=== PATIENT | female | born 1935 | race Caucasian/White ===

== ENCOUNTER 2018-10-27 09:12 | Emergency (ER) | payer MEDICARE, OTHER ==
[~2018-10-27] VITALS: Ht 160 cm; Wt 77.1 kg
[~2018-10-27 09:12] MED LIST: Amlodipine Besyl5 MG PO; CYCLOSPORINE BOTHEYES; Ferrous Sulfat325 M2 PO; Omeprazole20 M1 PO; PREG150 PO; Synthroid112 MCG PO; TRAM50 PO; Vitamin B-121000 MCG PO
== END 2018-10-27 10:40 | disposition home or self-care (01) ==
LOC: ER 09:12
DX: S01.81XA Laceration without foreign body of other part of head, initial encounter (principal); E11.9 Type 2 diabetes mellitus without complications; I10 Essential (primary) hypertension; I25.10 Atherosclerotic heart disease of native coronary artery without angina pectoris; I25.2 Old myocardial infarction; K21.9 Gastro-esophageal reflux disease without esophagitis; F32.9 Major depressive disorder, single episode, unspecified; E78.5 Hyperlipidemia, unspecified; Z79.899 Other long term (current) drug therapy; W18.30XA Fall on same level, unspecified, initial encounter
CPT/HCPCS: 12053; 70450; 99284-25

== ENCOUNTER → 2019-03-24 | Outpatient (CLI) | payer MEDICARE, OTHER ==
[2019-03-24 16:12] LABS: BASOPHILS ABSOLUTE AUTO 0.08 K/mm3 (0.00-0.23); BASOPHILS PERCENT AUTO 1 % (0-2); EOSINOPHILS ABSOLUTE AUTO 0.15 K/mm3 (0.00-0.68); EOSINOPHILS PERCENT AUTO 2 % (0-6); Hematocrit 37.9 % (33.0-51.0); Hemoglobin 11.9 g/dL (11.5-16.0); IMMATURE GRAN ABSOLUTE AUTO 0.01 K/mm3 (0.00-0.10); IMMATURE GRAN PERCENT AUTO 0 % (0-1); LYMPHOCYTES ABSOLUTE AUTO 0.91 K/mm3 (0.84-5.20); LYMPHOCYTES PERCENT AUTO 13 % (21-46); MONOCYTES ABSOLUTE AUTO 0.78 K/mm3 (0.16-1.47); MONOCYTES PERCENT AUTO 11 % (4-13); Mean Corpuscular HGB Conc 31.4 g/dL (31.5-36.5); Mean Corpuscular Volume 86 fL (80-100); Mean Platelet Volume 10.7 fL (9.1-12.4); NEUTROPHILS ABSOLUTE AUTO 5.29 K/mm3 (1.96-9.15); NEUTROPHILS PERCENT AUTO 73 % (41-73); Platelet Count 274 K/mm3 (150-400); RDW Coefficient Variation 14.3 % (11.7-14.2); RDW Standard Deviation 44.8 fL (35.1-46.3); Red Blood Cell Count 4.41 M/mm3 (3.80-5.20); White Blood Cell Count 7.22 K/mm3 (4.00-11.30)
[2019-03-24 16:14] LABS: Bilirubin, Urine Neg (Neg); Blood, Urine 1+ (Neg); Glucose Qualitative, Urine Neg (Neg); Ketones, Urine 1+ (Neg); Leukocyte Esterase, Urine 2+ (Neg); Nitrite, Urine Neg (Neg); Protein, Urine 1+ (Neg); Urobilinogen, Urine 1+ (Normal)
[2019-03-24 16:22] LABS: Appearance, Urine Clear (Clear); Color, Urine Yellow (P-Yellow)
[2019-03-24 16:23] LABS: Bacteria Few /hpf; Mucus Light (0-Heavy); Squamous Epithelial Cells Few /hpf (Few)
[2019-03-24 16:37] LABS: Alanine Aminotransfer (ALT/SGP 17 U/L (12-78); Albumin, Blood 3.7 g/dL (3.4-5.0); Albumin/Globulin Ratio 0.9 (0.8-1.8); Alk Phos 95 U/L (50-136); Anion Gap 5 mmol/L (6-16); Aspartate Aminotrans (AST/SGOT 13 U/L (12-37); Bilirubin, Total 0.6 mg/dL (0.1-1.0); Blood Urea Nitrogen 22 mg/dL (8-24); Bun/Creatinine Ratio 27.2 (12.0-20.0); CO2, Blood 27 mmol/L (21-32); Calcium, Blood 9.1 mg/dL (8.5-10.1); Chloride, Blood 105 mmol/L (98-108); Creatinine, Blood 0.81 mg/dL (0.40-1.00); Globulin, Blood 3.9 g/dL (2.2-4.0); Glomerular Filtration Rate >60 (60-); Glucose, Blood 90 mg/dL (70-99); Potassium, Blood 3.3 mmol/L (3.5-5.5); Sodium, Blood 137 mmol/L (136-145); Total Protein, Blood 7.6 g/dL (6.4-8.2)
== END ==
LOC: LAB SHORT 16:02 → LAB 16:02
PROVIDERS: Nurse Practitioner
DX: N39.0 Urinary tract infection, site not specified (principal); R53.83 Other fatigue
CPT/HCPCS: 80053; 81001; 84443; 85025; 87086

== ENCOUNTER 2020-06-15 12:58 | Inpatient (IN) | payer OTHER, MEDICARE ==
[~2020-06-15] VITALS: Ht 160 cm; Wt 76.3 kg
[~2020-06-15 12:58] MED LIST changes: +Amlodipine Bes2.5 MG PO; -Amlodipine Besyl5 MG PO; +EUTHYROX125 MCG PO; -Synthroid112 MCG PO
[2020-06-15 13:37] LABS: BASOPHILS ABSOLUTE AUTO 0.04 K/mm3 (0.00-0.23); BASOPHILS PERCENT AUTO 0 % (0-2); EOSINOPHILS ABSOLUTE AUTO 0.06 K/mm3 (0.00-0.68); EOSINOPHILS PERCENT AUTO 1 % (0-6); Hematocrit 38.4 % (33.0-51.0); IMMATURE GRAN ABSOLUTE AUTO 0.03 K/mm3 (0.00-0.10); IMMATURE GRAN PERCENT AUTO 0 % (0-1); LYMPHOCYTES ABSOLUTE AUTO 0.22 K/mm3 (0.84-5.20); LYMPHOCYTES PERCENT AUTO 2 % (21-46); MONOCYTES ABSOLUTE AUTO 0.52 K/mm3 (0.16-1.47); MONOCYTES PERCENT AUTO 4 % (4-13); Mean Corpuscular HGB 27.7 pg (26.0-34.0); Mean Corpuscular HGB Conc 33.9 g/dL (31.5-36.5); Mean Corpuscular Volume 82 fL (80-100); Mean Platelet Volume 11.2 fL (9.1-12.4); NEUTROPHILS PERCENT AUTO 93 % (41-73); Platelet Count 173 K/mm3 (150-400); RDW Standard Deviation 44.2 fL (35.1-46.3); Red Blood Cell Count 4.69 M/mm3 (3.80-5.20); White Blood Cell Count 11.77 K/mm3 (4.00-11.30)
[2020-06-15] MEDS ORDERED: PREG150 PO (13:44)
[2020-06-15 13:52] LABS: Troponin I 0.383 ng/mL (0.000-0.040)
[2020-06-15 13:53] LABS: Alanine Aminotransfer (ALT/SGP 20 U/L (12-78); Albumin, Blood 3.1 g/dL (3.4-5.0); Albumin/Globulin Ratio 0.8 (0.8-1.8); Alk Phos 108 U/L (50-136); Anion Gap 9 mmol/L (6-16); Aspartate Aminotrans (AST/SGOT 22 U/L (12-37); Bilirubin, Total 0.8 mg/dL (0.1-1.0); Blood Urea Nitrogen 14 mg/dL (8-24); Bun/Creatinine Ratio 22.3 (12.0-20.0); CO2, Blood 24 mmol/L (21-32); Calcium, Blood 8.6 mg/dL (8.5-10.1); Chloride, Blood 98 mmol/L (98-108); Creatinine, Blood 0.63 mg/dL (0.40-1.00); Globulin, Blood 3.7 g/dL (2.2-4.0); Glomerular Filtration Rate >60 (60-); Glucose, Blood 127 mg/dL (70-99); Potassium, Blood 3.6 mmol/L (3.5-5.5); Sodium, Blood 131 mmol/L (136-145); Total Protein, Blood 6.8 g/dL (6.4-8.2)
[2020-06-15 13:59] LABS: Source, Urine Catheter
[2020-06-15 14:08] LABS: Appearance, Urine Clear (Clear); Bilirubin, Urine Neg (Neg); Blood, Urine 1+ (Neg); Color, Urine Yellow (P-Yellow); Glucose Qualitative, Urine Neg (Neg); Ketones, Urine 3+ (Neg); Leukocyte Esterase, Urine 1+ (Neg); Nitrite, Urine Neg (Neg); Protein, Urine 2+ (Neg); Urobilinogen, Urine NORM (Normal)
[2020-06-15 14:36] LABS: Bacteria Few /hpf; Squamous Epithelial Cells Few /hpf (Few)
[2020-06-15] MEDS ORDERED: Vistaril25 MG PO (15:25)
--- NOTE | 2020-06-15 18:35 | NUR ---
Shift Summary Received report from [facility] ED-RN. Patient arrived via gurney without spouse. A/Ox3, pleasant and cooperative. Patient reports unable to stand/transfer. Denies any pain, nausea, vomiting, diarrhea. History is limited to what patient was able to remember. Tele: SR corbin PAC's. Settled to room, oriented to call light system, bed in lowest position. T.O. from Dr. Adan to change D5 1/2 NS KCl to D5NS and NPO except meds/sips of water. Orders have been updated. Patient states garbled speech is new. WCTM.
[2020-06-15 21:07] LABS: CHOL/HDL RATIO 2.7; Cholesterol 152 mg/dL (50-200); HDL Cholesterol 57 mg/dL (>39); LDL/HDL RATIO 1.4; Low Density Lipoprotein Chol 80 mg/dL (0-110); Triglycerides 73 mg/dL (30-160); Very Low Density Lipoprot Chol 14 mg/dL (6-32)
[2020-06-16 01:54] LABS: Anion Gap 5 mmol/L (6-16); Blood Urea Nitrogen 13 mg/dL (8-24); Bun/Creatinine Ratio 21.7 (12.0-20.0); CO2, Blood 29 mmol/L (21-32); Calcium, Blood 8.2 mg/dL (8.5-10.1); Chloride, Blood 99 mmol/L (98-108); Glomerular Filtration Rate >60 (60-); Glucose, Blood 134 mg/dL (70-99); Potassium, Blood 3.3 mmol/L (3.5-5.5); Sodium, Blood 133 mmol/L (136-145)
--- NOTE | 2020-06-16 06:45 | NUR ---
SHIFT SUMMARY PT A&O T/O SHIFT, CALM AND COOPERATIVE WITH CARE. AT THE BEGINNING OF THE SHIFT IT WAS NOTED THAT THE PT HAD A SLIGHT EXPIRATORY WHEEZE. THE NIGHT WENT ON THE WHEEZE WAS MORE AUDITORY AND LUNG SOUNDS WERE TIGHTER. O2 SATS REMAINED ABOVE 92%. PT STATED SHE HAS COPD AND WAS A FORMER SMOKER. BD PROTOCOL WAS ORDER AND PT RECIEVED A BREATHING TX THAT APPEARED TO HELP SLIGHTLY. PT STILL HAD AN AUDIBLE WHEEZE. BP WAS ALSO ELEVATED, 177/102, EARLY THIS AM, HR ALSO INCREASING IN THE 90-1TEENS. PROVIDER NOTIFIED AND PT WAS GIVEN HYDRALAZINE 10 MG IV PER HOSPITALIST ORDERS. BP BEGAN TO DROP SHORTLY AFTER, 155/91. RECIEVED CALL FROM MASTER CERTIFIED RV TECHNICIAN @ APPROX 0530 STATING THE PT CONVERTED INTO A FIB IN THE 130'S. ENROBING MACHINE OPERATOR HOSPITALIST WAS NOTIFIED AND ORDERED 5 MG IV LOPRESSOR NOW. PT WAS GIVEN THE LOPRESSOR. CALLED MASTER CERTIFIED RV TECHNICIAN @ 0645 AND PT WAS STILL IN AFIB IN THE 90'S. PT APPEARS TO BE IN NO DISTRESS AT THIS TIME AND IS LYING IN BED SLEEPING. CALL LIGHT IS WITHIN REACH. WILL REPORT TO UNCOMING RN PT CHANGES AND STAUS.
--- NOTE | 2020-06-16 14:26 | NUR ---
V.O. RE IVF RATE CHANGE RECEIVED V.O. FROM DR. LOPEZ TO REDUCE D5NS FROM 100 MLS/HR TO 75 MLS/HR. ORDER UPDATED
--- NOTE | 2020-06-16 16:02 | NUR ---
BLADDER SCAN/STRAIGHT CATH ORDER PATIENT HAS 2 MINIMAL VOIDS THIS SHIFT. BLADDER SCAN DONE AND SHOWED 739 CC. RECEIVED ONE TIME T.O. TO STRAIGHT CATH FROM DR. LOPEZ. STRAIGHT CATH COMPLETED AND 500 CC OUT.
--- NOTE | 2020-06-16 16:06 | NUR ---
PUREE DIET/HONEY THICK RECEIVED T.O. FROM DR. LOPEZ TO START PUREE DIET D/T ASPIRATION RISK WITH THIN LIQUIDS. ORDER UPDATED.
--- NOTE | 2020-06-16 18:35 | NUR ---
Shift Summary A/Ox3, pleasant and cooperative with care. PT eval done. Tele: ST 106 c PAC's in AM. Continuous biox on. Diet changed to puree and honey thick d/t wet cough after drinking thin liquids, patient tolerated this well. Updated and d/c IVF order because patient is no longer NPO. Received T.O. from Dr. Carpio to d/c CBG's. Received V.O. from Dr. Clifton to insert madera if patient continues to retain, but received parameters from Dr. Carpio (PVD > 500cc). Patient still having global weakness, follows commands well. HR tachy and patient having low-grade temp, all other vitals have been stable. visited briefly. Denies pain, nausea, vomiting, diarrhea, shortness of breath. On RA, WCTM.
--- NOTE | 2020-06-16 19:40 | NUR ---
[employer] REPORTED HEART RATE IN THE 130'S. UPON ARRIVAL TO ROOM, PT STATED SHE HAD HAD A "COUGHING SPELL", AND FELT SOB. NOTE CONT O2 SHOWS 90'S SATS. CALL PLACED TO RT FOR ASSESSMENT AND TREATMENT. RT WAS IN THE ROOM AND TREATMENT GIVEN. WILL CONTINUE TO MONITOR. HR DOWN TO 112, OR SO. CALL LIGHT IN REACH
--- NOTE | 2020-06-16 22:34 | NUR ---
HS MEDS TOLERATED WELL WITH APPLESAUCE AND ASPIRATION PRECAUTIONS MAINTAINED. HONEY THICK LIQUIDS IN ROOM. CALL LIGHT IN REACH. HEART MONITOR/O2 SATS IN USE.
--- NOTE | 2020-06-17 04:31 | NUR ---
BP AND HR ELEVATED, (SEE DOCUMENTATION) HR WAS REPORTED UP TO 140'S AND 150'S. CALL PLACED TO MD SURVEY PARTY CHIEF, METAPROLOL IV ORDERED - SEE MAR. MED GIVEN, NOW HR 93, RESTING QUIETLY. WILL MONITOR. CALL LIGHT IN REACH
--- NOTE | 2020-06-17 05:42 | NUR ---
SHIFT SUMMARY HAS BEEN RESTING WITH FEW INTERRUPTIONS, BUT HEART RATE AND BP ELEVATED - SEE DOCUMENTATION SHEET. MD RN PERITONEAL DIALYSIS WAS NOTIFIED AND ORDERS FOR METAPROLOL OBTAINED AND GIVEN. HR DECREASED TO 80'S AND 90'S. DENIED CHEST PAIN, CINGESTED COUGH AT TIMES, RECEIVEING RESP TREATMENTS. CALL LIGHT IN REACH
[2020-06-17 11:37] LABS: Influenza A, PCR NEGATIVE (NEGATIVE); Influenza B, PCR NEGATIVE (NEGATIVE); Resp Syncytial Virus, PCR NEGATIVE (NEGATIVE)
[2020-06-17 11:41] LABS: SARS-Cov-2 (COVID-19) PCR, MMC POSITIVE (NEGATIVE)
--- NOTE | 2020-06-17 12:25 | NUR ---
0845 SPOKE WITH HOSPITALIST REGARDING SWALLOWING CHANGES, DROOLING, LEFT MOUTH DROOP, DYSPNEA WITH O2 SATS WNL, AND GENERALIZED WEAKNESS. MD PLACING ORDERS. RT CALLED FOR BREATHING TX. 1020: TELE CONFIRMS AFIB HEART RATE 100-110. PO METOPROLOL STARTING TODAY 12.5 MG BID. 1230: COVID POSITIVE RESULT. HEAD CT AND MRI NEGATIVE FOR STROKE. MD STATES WILL CALL FAMILY. RESTING IN BED AT THIS TIME ON RA WITH CONTINUOUS SPO2 IN PLACE, SATS WITHIN NORMAL LIMITS. CXR AND ECHO TESTS PENDING.
[2020-06-17 12:36] LABS: Anion Gap 7 mmol/L (6-16); Blood Urea Nitrogen 20 mg/dL (8-24); Bun/Creatinine Ratio 33.3 (12.0-20.0); CO2, Blood 25 mmol/L (21-32); Calcium, Blood 8.7 mg/dL (8.5-10.1); Chloride, Blood 102 mmol/L (98-108); Glomerular Filtration Rate >60 (60-); Glucose, Blood 128 mg/dL (70-99); Magnesium, Blood 1.9 mg/dL (1.6-2.4); Phosphorus, Blood 2.2 mg/dL (2.5-4.9); Potassium, Blood 3.6 mmol/L (3.5-5.5); Sodium, Blood 134 mmol/L (136-145)
--- NOTE | 2020-06-17 23:04 | NUR ---
Isolation precautions maintained for Covid Dx. Assisted to bedside commode earlier with (2) person assist. Back in bed, later was incont of urine and changed. HOB elevated at >45 degrees for breathing comfort. Pulse in 90's. O2 saturation maintained. Call light in reach
--- NOTE | 2020-06-18 04:14 | NUR ---
SHIFT SUMMARY HAS BEEN AWAKE A FWE TIMES SINCE HS WITH REQUESTS FOR ASSIST TO BEDSIDE COMMODE AND WA INCONT OF URINE AND WAS CHANGED. CALL LIGHT IN REACH. HR IN THE 70'S - 90'S AND O2 SATS IN THE 90'S. HOB ELEVATED FOR COMFORT WITH BREATHING. CALL LIGHT IN REACH. DROPLET ISOLATION PRECAUTIONS MAINTAINED. RESTING QUIETLY AT THIS TIME.
[2020-06-18 05:02] LABS: BASOPHILS ABSOLUTE AUTO 0.01 K/mm3 (0.00-0.23); BASOPHILS PERCENT AUTO 0 % (0-2); EOSINOPHILS PERCENT AUTO 0 % (0-6); Hematocrit 34.7 % (33.0-51.0); Hemoglobin 11.5 g/dL (11.5-16.0); IMMATURE GRAN ABSOLUTE AUTO 0.02 K/mm3 (0.00-0.10); IMMATURE GRAN PERCENT AUTO 0 % (0-1); LYMPHOCYTES ABSOLUTE AUTO 0.44 K/mm3 (0.84-5.20); LYMPHOCYTES PERCENT AUTO 6 % (21-46); MONOCYTES ABSOLUTE AUTO 0.42 K/mm3 (0.16-1.47); MONOCYTES PERCENT AUTO 6 % (4-13); Mean Corpuscular HGB 27.3 pg (26.0-34.0); Mean Corpuscular HGB Conc 33.1 g/dL (31.5-36.5); Mean Corpuscular Volume 82 fL (80-100); Mean Platelet Volume 11.5 fL (9.1-12.4); NEUTROPHILS ABSOLUTE AUTO 6.78 K/mm3 (1.96-9.15); NEUTROPHILS PERCENT AUTO 88 % (41-73); Platelet Count 174 K/mm3 (150-400); RDW Coefficient Variation 14.9 % (11.7-14.2); RDW Standard Deviation 44.4 fL (35.1-46.3); Red Blood Cell Count 4.21 M/mm3 (3.80-5.20); White Blood Cell Count 7.67 K/mm3 (4.00-11.30)
[2020-06-18 05:20] LABS: Anion Gap 8 mmol/L (6-16); Blood Urea Nitrogen 26 mg/dL (8-24); Bun/Creatinine Ratio 41.9 (12.0-20.0); CO2, Blood 25 mmol/L (21-32); Calcium, Blood 8.6 mg/dL (8.5-10.1); Chloride, Blood 103 mmol/L (98-108); Creatinine, Blood 0.62 mg/dL (0.40-1.00); Glomerular Filtration Rate >60 (60-); Glucose, Blood 125 mg/dL (70-99); Magnesium, Blood 1.8 mg/dL (1.6-2.4); Phosphorus, Blood 3.3 mg/dL (2.5-4.9); Potassium, Blood 4.1 mmol/L (3.5-5.5); Sodium, Blood 136 mmol/L (136-145)
--- NOTE | 2020-06-18 05:36 | NUR ---
BATHROOM LIGHT SENSOR ON, UPON ARRIVAL IN ROOM, NOTE PT SITTING ON TOILET REQUESTING ASSISTANCE. PT HAD VOIDED, BUT SAID SHE FORGOT THAT SHE WAS IN THE HOSPITAL AND THOUGHT SHE WAS AT HOME, AND "GOT UP AND WENT TO THE TOILET". aSSISTED BACK TO BED. INSTRUCTED TO USE CALL LIGHT FOR ASSIST TO AND FROM BATHROM TO AVOID FALLING. BED ALARM ON. CALL LIGHT IN REACH. BP SLIGHTLY ELEVATED OTHERWISE VSS.
--- NOTE | 2020-06-18 13:19 | NUR ---
Patient is sitting on a chair and alert. Patient is very tearful. She talks about how scary the Covid diagnosis is and how much she misses her family. She states that she will try to talk with her daughter (who travelled from [place] to see her) on the phone while she stands outside patient's hospital window. Patient tells me her life story and weaves in her family and her spiritual journey into the storyline. I normalize patient's experience and provide therapeutic listening, anxiety containment, pastoral addictions counselor assistant and prayer. Patient responds well and shows signs of an elevated mood and reduced stress. I will continue to remain available to patient and family.
--- NOTE | 2020-06-18 22:31 | NUR ---
HELP DESK OPERATOR REPORTED PT C/O DIFFICULTY WITH BREATHING. REPOSITIONED IN BED WITH HOB ELEVATED TO >45 DEGREES. PT STATED HAVING SOME DIFFICULTY "COUGHING" UP PHLEGM. CALL PLACED TO RT FOR EVAL AND RESP TREATMENT. CALL LIGHT IN REACH. O2 SATS IN 90'S. CONT PULSE OX IN USE. WILL MONITOR
--- NOTE | 2020-06-18 22:53 | NUR ---
WAS ASSISTED TO AND FROM BATHROOM EARLIER WITH USE OF WALKER. AFFECT CHEERFUL. VOICED FELT BETTER, WAS INCLINED TO BE "SELF EFFICIENT". INSTRUCTED TO USE CALL LIGHT FOR ASSIST AT LEAST FOR SUPERVISION. VOICED AGREEMENT. RT RECENTLY IN TO SEE PT POST RESP C/O. RESTING QUIETLY AT THIS TIME. CALL LIGHT IN REACH
--- NOTE | 2020-06-19 00:54 | NUR ---
AWAKE, O2 SATS 90'S. HOB REMAINS ELEVATED >45 DEGREES. SMILING, NO NOTED ACUTE RESP DISTRESS. CALL LIGHT IN REACH
--- NOTE | 2020-06-19 04:07 | NUR ---
SHIFT SUMMARY AWAKE AT INTERVALS, UP TO THE BATHROOM A FEW TIMES WITH WALKER AND ASSISTANCE. USING CALL LIGHT APPROPRIATELY. COVID ISOLATION PRECAUTIONS MAINTAINED. CONT PULSE OX: SATS 90'S AND HR MAINLY LESS THAN 100. HAD ONE EPISODE OF SOB, AT WHICH TIME WAS REPOSITIONED IN BED AND ASSESSED BY RT. NO FURTHER EPISODES NOTED. RESTING QUIETLY AT THIS TIME. CALL LIGHT IN REACH.
[2020-06-19 05:21] LABS: Anion Gap 8 mmol/L (6-16); Blood Urea Nitrogen 31 mg/dL (8-24); Bun/Creatinine Ratio 42.8 (12.0-20.0); CO2, Blood 24 mmol/L (21-32); Chloride, Blood 101 mmol/L (98-108); Creatinine, Blood 0.72 mg/dL (0.40-1.00); Glomerular Filtration Rate >60 (60-); Glucose, Blood 107 mg/dL (70-99); Sodium, Blood 133 mmol/L (136-145)
--- NOTE | 2020-06-19 17:58 | NUR ---
SHIFT SUMMARY PT AOX3-4 ; CONFUSED AT TIMES. PT DTR CALLED AND ASKED ABOUT THE PT SITUATION TODAY; PT DTR WANTING TO TALK TO THE DOCTOR. PT IS ON DAY 2 OF [facility]. PT UP IN THE CHAIR MOST OF THE DAY AND WORKED WITH PT/OT. PT HAD A BED BATH TODAY. DENIES PAIN. SOB ON EXERTION; SATS ABOVE 90S. BED IS IN THE LOWEST POSITION AND CALL LIGHT WITHIN REACH
--- NOTE | 2020-06-20 07:46 | NUR ---
Rosio had no complaints of discomfort overnight, yet she appeared not to want to be alone in her room. She spoke about her and how now he is having to take over most of the work she did for him and the family before her hands made it impossible to do. It was obvious this was a great loss to her. Rosio finally took a melatonin early in the morning and finally got some sleep. A&OX3-4, pleasant and cooperative with care
--- NOTE | 2020-06-20 17:47 | NUR ---
SHIFT SUMMARY PT AOX3; CONFUSED AT TIMES. PT TAKE MEDS WITH APPLESAUCE. NO APPARENT DISTRESS. NO SOB OR CP. AFIB AT 90S. DISCUSSED WITH THE DR THIS AM ABOUT THE PLAN FOR THIS. PT IS ASYMPTOMATIC AND PROBABLY READY FOR DC; THE [facility] COVERAGE IS MIMINAL BENEFIT FOR THIS PT CONSIDER THAT THE PT IS NOT HYPOXIC AND DISCUSSED THIS WITH THE FAMILY. ALSO PT AWARE THAT SHE MIGHT GO HOME 1-2 DAYS. OTHERWISE NO C/O OR CONCERNS. BED IS IN THE LOWEST POSITION AND CALL LIGHT WITHIN REACH
[2020-06-21] MEDS ORDERED: AMOCLA875 PO (10:29)
[2020-06-21] MEDS ORDERED: DEXA6 PO (10:43)
[2020-06-21] MEDS ORDERED: METO25 PO (10:44)
[2020-06-21] MEDS ORDERED: XARELTO20 MG PO (10:45)
--- NOTE | 2020-06-21 12:21 | NUR ---
DISCHARGED:escorted to car by family, who had come up to assist in discharge, REVIEWED:medications, discharge instructions, appointments, possible changes, REMOVED: iv, tele and oximeter, pt and family stated they were pleased with the care they received at [facility]
[2020-08-14] MEDS ORDERED: PREG150 PO (15:03)
[2020-08-14] MEDS ORDERED: ONDA4ODT MM ×2 (16:28→17:00)
[2020-08-16] MEDS ORDERED: Reglan10 MG PO (14:53)
== END 2020-06-21 11:56 | disposition home health service (06) | DRG 871 ==
LOC: ER 12:58 → MEDS 12:59 → ENPENDDIS 06-21 09:15 → MEDS 06-21 11:56
PROVIDERS: Family Medicine; Physician Assistant; ADMIT Internal Medicine
PROC: 8E0ZXY6 Isolation (ICD-10-PCS; principal; 2020-06-17)
PROC: 3E0DX3Z Introduction of Anti-inflammatory into Mouth and Pharynx, External Approach (ICD-10-PCS; 2020-06-17)
PROC: XW033E5 Introduction of Remdesivir Anti-infective into Peripheral Vein, Percutaneous Approach, New Technology Group 5 (ICD-10-PCS; 2020-06-17)
DX: A41.89 Other specified sepsis (principal); U07.1 COVID-19; I21.A1 Myocardial infarction type 2; J12.82 Pneumonia due to coronavirus disease 2019; J15.9 Unspecified bacterial pneumonia; E87.1 Hypo-osmolality and hyponatremia; J44.0 Chronic obstructive pulmonary disease with (acute) lower respiratory infection; I10 Essential (primary) hypertension; I25.10 Atherosclerotic heart disease of native coronary artery without angina pectoris; E03.9 Hypothyroidism, unspecified; E86.0 Dehydration; E87.6 Hypokalemia; E11.40 Type 2 diabetes mellitus with diabetic neuropathy, unspecified; G89.29 Other chronic pain; I48.91 Unspecified atrial fibrillation; J45.909 Unspecified asthma, uncomplicated; I25.2 Old myocardial infarction; K21.9 Gastro-esophageal reflux disease without esophagitis; F32.9 Major depressive disorder, single episode, unspecified; E78.5 Hyperlipidemia, unspecified; Z90.49 Acquired absence of other specified parts of digestive tract; Z90.13 Acquired absence of bilateral breasts and nipples; Z88.8 Allergy status to other drugs, medicaments and biological substances; Z90.710 Acquired absence of both cervix and uterus; Z98.890 Other specified postprocedural states; W18.30XA Fall on same level, unspecified, initial encounter
CPT/HCPCS: 0241U; 36415; 51701; 70450; 70551; 71045; 73030; 80048; 80053; 80061; 81001; 82947; 83036; 83735; 84100; 84145; 84443; 84484; 85025; 87086; 92526; 92610; 93005; 93010; 93306; 94640; 94760; 94762; 96372; 96374; 96375; 96376; 97110; 97116; 97162; 97166; 97530; 97535; 99285-25; A9270; G0378; J0360; J0696; J1650; J7042

== ENCOUNTER 2020-08-20 23:29 | Emergency (ER) | payer MEDICARE, OTHER ==
[~2020-08-20] VITALS: Ht 167.6 cm; Wt 72.6 kg
[~2020-08-20 23:29] MED LIST changes: +AMOCLA875 PO; +DEXA6 PO; +METO25 PO; +ONDA4ODT MM; +Reglan10 MG PO; +Vistaril25 MG PO; +XARELTO20 MG PO
[2020-08-20 23:56] LABS: BASOPHILS ABSOLUTE AUTO 0.07 K/mm3 (0.00-0.23); BASOPHILS PERCENT AUTO 0 % (0-2); EOSINOPHILS ABSOLUTE AUTO 0.32 K/mm3 (0.00-0.68); EOSINOPHILS PERCENT AUTO 1 % (0-6); Hematocrit 31.8 % (33.0-51.0); Hemoglobin 9.4 g/dL (11.5-16.0); IMMATURE GRAN ABSOLUTE AUTO 0.86 K/mm3 (0.00-0.10); IMMATURE GRAN PERCENT AUTO 4 % (0-1); LYMPHOCYTES ABSOLUTE AUTO 4.79 K/mm3 (0.84-5.20); LYMPHOCYTES PERCENT AUTO 21 % (21-46); MONOCYTES ABSOLUTE AUTO 1.16 K/mm3 (0.16-1.47); MONOCYTES PERCENT AUTO 5 % (4-13); Mean Corpuscular HGB 24.9 pg (26.0-34.0); Mean Corpuscular HGB Conc 29.6 g/dL (31.5-36.5); Mean Corpuscular Volume 84 fL (80-100); Mean Platelet Volume 11.9 fL (9.1-12.4); NEUTROPHILS ABSOLUTE AUTO 15.23 K/mm3 (1.96-9.15); NEUTROPHILS PERCENT AUTO 68 % (41-73); Platelet Count 334 K/mm3 (150-400); RDW Coefficient Variation 14.1 % (11.7-14.2); RDW Standard Deviation 43.4 fL (35.1-46.3); Red Blood Cell Count 3.77 M/mm3 (3.80-5.20); White Blood Cell Count 22.43 K/mm3 (4.00-11.30)
--- NOTE | 2020-08-21 00:01 | NUR ---
8.0 ETT, 22 CM AT TEETH
[2020-08-21 00:05] LABS: Bilirubin, Urine Neg (Neg); Blood, Urine Neg (Neg); Glucose Qualitative, Urine Neg (Neg); Ketones, Urine Neg (Neg); Leukocyte Esterase, Urine 1+ (Neg); Nitrite, Urine Neg (Neg); Protein, Urine 1+ (Neg); Source, Urine Catheter; Specific Gravity, Urine 1.015 (1.003-1.022); Urobilinogen, Urine NORM (Normal)
[2020-08-21 00:06] LABS: Appearance, Urine Clear (Clear); Color, Urine Yellow (P-Yellow)
[2020-08-21 00:10] LABS: International Normalized Ratio 1.13; Prothrombin Time Results 12.1 Sec (9.7-11.5)
[2020-08-21 00:10] LABS: Calcium, Ionized (POC) 1.13 mmol/L (1.10-1.46); Chloride (POC) 97 mmol/L (98-108); Creatinine (POC) 1.7 mg/dL (0.6-1.0); Glucose (ISTAT POC) 193 mg/dL (70-99); Hemoglobin (POC) 10.5 g/dL (12.0-16.0); Potassium (POC) 3.3 mmol/L (3.5-5.5); Sodium (POC) 131 mmol/L (135-148); Total CO2 (POC) 21 mmol/L (21-32)
[2020-08-21 00:11] LABS: Albumin, Blood 2.8 g/dL (3.4-5.0); Albumin/Globulin Ratio 1.1 (0.8-1.8); Bilirubin, Total 0.4 mg/dL (0.1-1.0); Bun/Creatinine Ratio 17.7 (12.0-20.0); Calcium, Blood 7.7 mg/dL (8.5-10.1); Creatinine, Blood 1.47 mg/dL (0.40-1.00); Globulin, Blood 2.6 g/dL (2.2-4.0); Potassium, Blood 3.3 mmol/L (3.5-5.5); Total Protein, Blood 5.4 g/dL (6.4-8.2); Troponin I 0.062 ng/mL (0.000-0.040)
[2020-08-21 00:16] LABS: Bacteria Few /hpf; Red Blood Cells, Urine 0-2 /hpf (0-2)
[2020-08-21 00:17] LABS: Mucus Light (0-Heavy); Squamous Epithelial Cells Few /hpf (Few)
[2020-08-21 00:58] LABS: PCO2 Arterial 51.9 mmHg (35-45); PO2 Arterial 64.9 mmHg (80-100); pH Blood Arterial 7.24 (7.35-7.45)
[2020-08-21 01:01] LABS: Influenza A, PCR NEGATIVE (NEGATIVE); Influenza B, PCR NEGATIVE (NEGATIVE); Resp Syncytial Virus, PCR NEGATIVE (NEGATIVE); SARS-Cov-2 (COVID-19) PCR, MMC POSITIVE (NEGATIVE)
--- NOTE | 2020-08-21 02:32 | NUR ---
Call back - Pt's family were tearful, but greiving appropriately. Family able to verbalize pt is alive only because of breathing apparatus. Audible supplication provided as all family gathered around the pt. Family were appreciative of the interventions. Communicated with family to take as much time as needed. Some family are choosing to stay with pt when she is extubated. states they have been together 65 years.
== END 2020-08-21 04:10 ==
LOC: ER 23:29
PROVIDERS: Emergency Medicine
DX: I46.9 Cardiac arrest, cause unspecified (principal); J44.9 Chronic obstructive pulmonary disease, unspecified; I10 Essential (primary) hypertension; U07.1 COVID-19; E11.42 Type 2 diabetes mellitus with diabetic polyneuropathy; I25.10 Atherosclerotic heart disease of native coronary artery without angina pectoris; I25.2 Old myocardial infarction; Z88.8 Allergy status to other drugs, medicaments and biological substances; Z79.01 Long term (current) use of anticoagulants; Z79.899 Other long term (current) drug therapy; Z86.16 Personal history of COVID-19
CPT/HCPCS: 0241U; 31500; 36415; 36600; 51702; 70450; 71045; 80047; 80053; 81001; 82803; 83605; 83690; 83880; 84484; 85014; 85025; 85610; 87040; 87086; 93005; 93010; 94002; 96365; 96366; 96375; 99291-25; 99292